=== PATIENT | male | born 1950 | race African-American/Black ===

== ENCOUNTER 2016-12-05 07:38 | Emergency (ER) | payer OTHER ==
[~2016-12-05] VITALS: Ht 185.4 cm; Wt 73.0 kg
[~2016-12-05 07:38] MED LIST: AMLO10TA80 PO; FS300 PO; SEVE800T PO
[2016-12-05 08:27] LABS: BASOPHILS % 0.9 % (0.0-2.0); EOSINOPHILS % 2.7 % (0.0-5.0); HEMATOCRIT. 32.6 % (42.0-52.0); HEMOGLOBIN. 10.7 g/dL (14.0-18.0); LYMPHOCYTES % 20.3 % (20.0-50.0); MEAN CORPUSCULAR HGB CONC 32.8 g/dL (31.0-37.0); MEAN CORPUSCULAR VOLUME 82.6 fL (80.0-94.0); MEAN PLATELET VOLUME 6.2 fl (7.4-10.4); MONOCYTES % 9.3 % (2.0-8.0); NEUTROPHILS % 66.8 % (40.0-76.0); PLATELET 848 x1000/uL (130-400); RED BLOOD CELL COUNT 3.95 mill/uL (4.7-6.1); RED CELL DISTRIBUTION WIDTH 15.7 % (11.6-14.6); WHITE BLOOD COUNT 10.7 x1000/uL (4.5-11.0)
[2016-12-05 08:35] LABS: INR 1.1; PARTIAL THROMBOPLASTIN TIME 29.2 sec (24.0-34.0); PROTHROMBIN TIME 11.1 sec
[2016-12-05 08:42] LABS: ALANINE AMINOTRANSFERASE 15 IU/L (13-61); ALBUMIN 3.5 g/dL (3.4-5.0); ANION GAP 10; CALCIUM 9.4 mg/dL (8.5-10.1); CARBON DIOXIDE 33 mEq/L (21-32); CHLORIDE 102 mEq/L (98-107); INDEX HEMOLYSI 1 (1-3); INDEX ICTERIC 1 (1-4); INDEX LIPEMIC 1 (1-3); LIPASE 264 IU/L (73-393); PHOSPHORUS 3.6 mg/dL (2.5-4.9); UREA NITROGEN BLOOD 15 mg/dL (7-21); eGFR 53 mL/min (>60)
[2016-12-05 10:03] LABS: GLUCOSE URINE NEGATIVE (NEGATIVE); KETONES URINE TRACE (NEGATIVE); LEUKOCYTE ESTERASE URINE 2+ (NEGATIVE); NITRITE URINE POSITIVE (NEGATIVE); OCCULT BLOOD URINE 3+ (NEGATIVE); PROTEIN URINE 4+ (NEGATIVE); SPECIFIC GRAVITY URINE 1.033 (1.005-1.030)
[2016-12-05 10:04] LABS: CLARITY URINE CLOUDY (CLEAR); COLOR URINE BLOODY (YELLOW)
[2016-12-05 10:12] LABS: RBC URINE TNTC /hpf (0-2)
[2016-12-05 10:13] LABS: WBC URINE 50-100 /hpf (0-2)
[2016-12-05 10:15] LABS: BACTERIA URINE 2+; SQUAMOUS EPITHELIAL CELL URINE 1+ /lpf (RARE/1+)
[2016-12-05 11:12] VITALS: BP 158/105
[2016-12-05] MEDS ORDERED: CEFAZOLIN 1000MG PREMIX 50 ML IV ONE (11:15)
[2016-12-05] MEDS ORDERED: CEFAZOLIN 1000MG PREMIX 50 ML IV NR (11:31)
[2016-12-05] MEDS ORDERED: IOHEXOL-300 50 ML BOTTLE IV ONE (12:00)
[2016-12-05 13:14] VITALS: BP 167/92
== END 2016-12-05 13:15 | disposition home or self-care (01) ==
LOC: ER 08:07
PROC: 0T25X0Z Change Drainage Device in Kidney, External Approach (ICD-10-PCS; principal; 2016-12-05)
DX: N99.522 Malfunction of incontinent external stoma of urinary tract (principal); T83.032A Leakage of nephrostomy catheter, initial encounter; N28.9 Disorder of kidney and ureter, unspecified; K80.80 Other cholelithiasis without obstruction
CPT/HCPCS: 36415; 50435; 71010; 74176; 80053; 81001; 83605; 83690; 83735; 84100; 85025; 85610; 85730; 87040; 87077; 87086; 87186; 93005; 99285; C1725; C1769; J7040; J7050; Q9967